=== PATIENT | female | born 1965 | race Caucasian/White ===

== ENCOUNTER 2019-12-06 09:15 | Inpatient (IN) | payer BC, OTHER ==
[2019-12-13] MEDS ORDERED: Celecoxib 200 MG Cap PO ONE (05:42)
[2019-12-13] MEDS ORDERED: Gabapentin 300 MG Cap PO ONE (05:42)
[2019-12-13] MEDS ORDERED: Acetaminophen 500 MG Tab PO ONE (05:42)
[2019-12-13] MEDS ORDERED: Scopolamine 1.5 MG Transdermal Patch TRDERM ONE (06:00)
[2019-12-13] MEDS ORDERED: Dextrose 5%-Lactated Ringers 1,000 ML IV SCH (06:30)
[2019-12-13] MEDS ORDERED: cefOXitin 2 GM Vial ONE (06:51)
[2019-12-13] MEDS ORDERED: Rocuronium 50 MG/5 ML Vial ONE (07:10)
[2019-12-13] MEDS ORDERED: fentaNYL 250 MCG/5 ML SDV ONE ×2 (07:10→07:36)
[2019-12-13] MEDS ORDERED: Dexamethasone 4 MG/ML SDV ONE (07:10)
[2019-12-13] MEDS ORDERED: Propofol 200 MG/20 ML SDV ONE (07:10)
[2019-12-13] MEDS ORDERED: Ondansetron 4 MG/2 ML SDV ONE (07:10)
[2019-12-13] MEDS ORDERED: Neostigmine Methylsulfate 1 MG/ML 5 ML Syringe ONE (07:10)
[2019-12-13] MEDS ORDERED: Succinylcholine 200 MG/10 ML MDV ONE (07:10)
[2019-12-13] MEDS ORDERED: Glycopyrrolate 0.2 MG/ML 5 ML MDV ONE (07:10)
[2019-12-13] MEDS ORDERED: Ketamine 50 MG in Sodium Chloride 0.9% 49.5 ML IV SCH (07:30)
[2019-12-13] MEDS ORDERED: cefOXitin 2 GM in Sodium Chloride 0.9% 50 ML IV ONE (07:30)
[2019-12-13] MEDS ORDERED: Magnesium Sulfate 3.8 GM in Sodium Chloride 0.9% 100 ML IV SCH (07:30)
[2019-12-13] MEDS ORDERED: Ketamine 500 MG/5 ML MDV IV SCH (07:30)
[2019-12-13] MEDS ORDERED: Ondansetron 4 MG/2 ML SDV IVPUSH ONE (09:16)
[2019-12-13] MEDS ORDERED: hydrOXYzine HCL 100 MG/2 ML SDV IM ONE (09:21)
[2019-12-13] MEDS ORDERED: Calcium Gluconate 10% 1 GM/10 ML SDV IVPUSH PRN (10:15)
[2019-12-13] MEDS ORDERED: Acetaminophen 500 MG Tab PO PRN (10:15)
[2019-12-13] MEDS ORDERED: diphenhydrAMINE 50 MG/ML SDV IVPUSH PRN (10:15)
[2019-12-13] MEDS ORDERED: Metoclopramide 10 MG/2 ML SDV IVPUSH PRN (10:15)
[2019-12-13] MEDS ORDERED: Acetaminophen 500 MG Tab PO SCH (10:15)
[2019-12-13] MEDS ORDERED: Labetalol 20 MG/4 ML Syringe IVPUSH PRN (10:15)
[2019-12-13] MEDS ORDERED: Ondansetron 4 MG/2 ML SDV IVPUSH PRN (10:15)
[2019-12-13] MEDS ORDERED: Cyclobenzaprine 10 MG Tab PO PRN (10:15)
[2019-12-13] MEDS ORDERED: hydrOXYzine HCL 100 MG/2 ML SDV IM PRN (10:15)
[2019-12-13] MEDS: oxyCODONE 5 MG Tab PO PRN ×2 (10:39→20:52)
[2019-12-13] MEDS: Dextrose 5%-Lactated Ringers 1,000 ML IV SCH ×2 (12:48→21:48)
[2019-12-13] MEDS: Gabapentin 250 MG/5 ML Solution ML 470 ML Bottle PO SCH ×2 (13:54→20:52)
[2019-12-13] MEDS: Acetaminophen 500 MG Tab PO SCH ×2 (13:55→22:22)
[2019-12-13] MEDS: cefOXitin 2 GM in Sodium Chloride 0.9% 50 ML IV SCH ×2 (13:55→20:46)
[2019-12-13] MEDS ORDERED: Pantoprazole 40 MG Vial IVPUSH SCH (14:00)
[2019-12-13] MEDS: Heparin Sodium 5,000 Units/ML Vial SUBCUT SCH (15:59)
[2019-12-13] MEDS ORDERED: MVI, Adult with Vitamin K 10 ML, Thiamine 200 MG, Chromium/Copper/Mang/Selen/Zn 1 ML in... IV SCH ×4 (16:00)
[2019-12-14] MEDS: cefOXitin 2 GM in Sodium Chloride 0.9% 50 ML IV SCH ×2 (01:07→07:44)
[2019-12-14] MEDS ORDERED: Iopamidol 612 MG/ML 50 ML SDV PO STA (03:16)
[2019-12-14] MEDS: Acetaminophen 500 MG Tab PO SCH ×3 (05:12→21:38)
[2019-12-14] MEDS: Heparin Sodium 5,000 Units/ML Vial SUBCUT SCH ×2 (05:13→16:34)
[2019-12-14] MEDS: Dextrose 5%-Lactated Ringers 1,000 ML IV SCH ×2 (05:16→10:04)
[2019-12-14] MEDS: SCOPOLAMINE PATCH CHECK TOP SCH (08:24)
[2019-12-14] MEDS: oxyCODONE 5 MG Tab PO PRN ×2 (09:05→21:40)
[2019-12-14] MEDS: Celecoxib 200 MG Cap PO SCH ×2 (09:08→21:38)
[2019-12-14] MEDS: Gabapentin 250 MG/5 ML Solution ML 470 ML Bottle PO SCH ×3 (09:09→21:36)
--- NOTE | 2019-12-14 10:10 | CR ---
[facility] HISTORY: Postbariatric surgery FINDINGS: Patient swallowed water-soluble contrast. Upright views of the abdomen show no evidence of extravasation or obstruction. There is some patchy density in the left lower lobe which may represent atelectasis or infiltrate IMPRESSION: Status post bariatric surgery No extravasation or obstruction seen Slight delay in transit likely represents postop ileus Patchy left lower lobe airspace disease may represent some atelectasis or infiltrate
[2019-12-14] MEDS ORDERED: MVI, Adult with Vitamin K 10 ML, Thiamine 200 MG, Chromium/Copper/Mang/Selen/Zn 1 ML in... IV SCH ×4 (16:00)
[2019-12-14] MEDS: Pantoprazole 40 MG Delayed-Release Granules 1 Packet PO SCH (16:37)
[2019-12-15] MEDS: Dextrose 5%-Lactated Ringers 1,000 ML IV SCH (02:24)
[2019-12-15] MEDS: oxyCODONE 5 MG Tab PO PRN ×2 (04:53→13:37)
[2019-12-15] MEDS: Heparin Sodium 5,000 Units/ML Vial SUBCUT SCH ×2 (04:54→15:55)
[2019-12-15] MEDS: Acetaminophen 500 MG Tab PO SCH (05:26)
[2019-12-15] MEDS ORDERED: Bacitracin Oint 28.35 GM Tube TOP PRN (07:34)
[2019-12-15] MEDS: Celecoxib 200 MG Cap PO SCH ×2 (08:07→20:29)
[2019-12-15] MEDS: Hyoscyamine 0.125 MG Tab.SL SL SCH ×4 (08:10→20:29)
[2019-12-15] MEDS: Gabapentin 250 MG/5 ML Solution ML 470 ML Bottle PO SCH ×3 (08:10→20:29)
[2019-12-15] MEDS: SCOPOLAMINE PATCH CHECK TOP SCH (08:11)
[2019-12-15] MEDS ORDERED: Silver Sulfadiazine 1% Crm 50 GM Tube TOP SCH (09:00)
[2019-12-15] MEDS ORDERED: Cyanocobalamin (Vitamin B12) 1,000 MCG/ML SDV IM ONE (09:00)
[2019-12-15] MEDS: Silver Sulfadiazine 1% Crm 50 GM Tube TOP SCH ×2 (10:35→20:29)
--- NOTE | 2019-12-15 11:17 | PN ---
DATE OF SERVICE: 12/15/2019 SUBJECTIVE: Diandra reports that when swallowing Tylenol, she got a couple of them stuck. She tried whole one first and that one got stuck. It felt like it caught in the throat, then mid chest and mid epigastric area. Then, earlier this morning, she tried breaking them half and that one also got stuck. At the time that happened, she also developed left shoulder pain and is reporting the shoulder pain on a pain scale of 1 to 10, 9/10. Her oral intake yesterday was 1170, output 1545. SETEBAN drain put out a light pink drainage of 145 mL. REVIEW OF SYSTEMS: Remainder of review of systems negative for any pertinent positives and negatives. OBJECTIVE: GENERAL: Diandra Garcia is a pleasant 54-year-old female. She is experiencing left shoulder pain when moving. No shortness of breath or associated signs or symptoms. VITAL SIGNS: TPR is 98.8, 86, 16, blood pressure 119/73. HEENT: Negative. NECK: Supple. HEART: Regular rate and rhythm. LUNGS: Clear. ABDOMEN: She does have tape adkins noted per nursing staff. Sutures intact. Incisions healing well. ESTEBAN drain intact as above. Abdominal binder has been on. EXTREMITIES: Without peripheral edema. ASSESSMENT: 1. Laparoscopic Fred-en-Y gastric bypass surgery. 2. Liver biopsy. 3. Repair of diaphragmatic hernia. 4. Excision of mediastinal lipoma. 5. Partial gastrectomy. POSTOPERATIVE DIAGNOSES: 1. Morbid obesity, hepatomegaly, diaphragmatic hernia, mediastinal lipoma, area of stomach avulsion after formation of pouch. 2. Date of surgery: 12/13/2019. Surgeon: Werner Williamson MD. PLAN: 1. Silvadene cream to tape adkins b.i.d. 2. Change Tylenol to chewable. 3. Blue ice chips/water. 4. Three med cups, record at bedside of the blue ice or water. 5. Levsin 0.125 mg scheduled every 4 hours. 6. Instructed the patient to sit up as straight as possible when taking medication, eating, or drinking. 7. May shower. 8. Good pulmonary toilet. 9. We will evaluate p.r.n. or in a.m. Norma Hoffman PA-C /[id number]
[2019-12-15] MEDS: Acetaminophen 160 MG Tab,Disintegrating PO SCH ×2 (13:32→22:27)
--- NOTE | 2019-12-15 14:39 | PN ---
DATE OF SERVICE: 12/14/2019 The patient has been afebrile with stable vital signs. No major problems were noted overnight. Oral intake was fair. Upper GI x-ray looks good. We will go up to step-2 diet and back down the IV rate. maximize activity and pulmonary toilet. Werner Williamson MD /[id number]
[2019-12-15] MEDS: Pantoprazole 40 MG Delayed-Release Granules 1 Packet PO SCH (15:55)
[2019-12-16] MEDS: Hyoscyamine 0.125 MG Tab.SL SL SCH ×3 (00:26→08:00)
[2019-12-16] MEDS: oxyCODONE 5 MG Tab PO PRN (00:28)
[2019-12-16] MEDS: Heparin Sodium 5,000 Units/ML Vial SUBCUT SCH (03:57)
[2019-12-16] MEDS: Acetaminophen 160 MG Tab,Disintegrating PO SCH (06:14)
[2019-12-16] MEDS: Celecoxib 200 MG Cap PO SCH (08:00)
[2019-12-16] MEDS: Silver Sulfadiazine 1% Crm 50 GM Tube TOP SCH (08:01)
[2019-12-16] MEDS: Gabapentin 250 MG/5 ML Solution ML 470 ML Bottle PO SCH (08:01)
--- NOTE | 2019-12-16 13:33 | DISCH ---
ADMISSION DIAGNOSES: 1. Morbid obesity. 2. BMI 45.5. 3. Irritable bowel syndrome. DISCHARGE DIAGNOSES: 1. Laparoscopic Fred-en-Y gastric bypass surgery, liver biopsy, repair of diaphragmatic hernia, excision of mediastinal lipoma, and partial gastrectomy for morbid obesity, hepatomegaly, diaphragmatic hernia, mediastinal lipoma, area of stomach avulsion after formation of pouch. Date of surgery: 12/13/2019. Surgeon: Werner Williamson MD. 2. Tape adkins from surgical tape. 3. Left shoulder pain secondary to laparoscopic surgery. HISTORY: Diandra Garcia is a 54-year-old female who has a history of morbid obesity and increasing comorbidities. After preoperative evaluation, discussion of possible risks and possible complications, she wished to proceed with surgical procedure. HOSPITAL COURSE: Diandra had her surgery on 12/13/2019. She had no operative complications. On postoperative day #1, she was started on step 2 gastric bypass diet with no cereal. Her activity was good. During the night, she got Tylenol that felt like it got stuck when she was swallowing and she had a little bit of difficulty swallowing. At the same time that happened, she developed left shoulder pain. She was started on Levsin and encouraged to do 3 med cups per hour and she continued to ambulate. She also was started on blue ice chips and water. Silvadene cream was prescribed for tape adkins. On postoperative day #2, there was improvement in swallowing. Her tape adkins were healing. She continued to be up and ambulating. Oral intake was 1700. Urine output was 1800. ESTEBAN drains were 190 and serosanguineous and she had 2 bowel movements. She received vitamin B12 1000 mcg IM injection before discharge. She received adequate dietary and activity instruction, ready to be discharged to home. PHYSICAL EXAMINATION: GENERAL: Diandra is a pleasant 54-year-old female. VITAL SIGNS: Height is 5 feet 6 inches, weight is 282 pounds, BMI is 45.5. TPR at 07:09 is 96.8, 93, 16, blood pressure 108/63. HEENT: Negative. NECK: Supple. HEART: Regular rate and rhythm. LUNGS: Clear. ABDOMEN: Incisions healing well. Sutures intact. 4 x 4 over ESTEBAN drain site. EXTREMITIES: Without peripheral edema. DISPOSITION: Discharged to home. CONDITION: Stable and improving. FOLLOWUP: Appointment with Norma Hoffman PA-C, at [facility] on 12/28/2019 at 10 a.m. HOME MEDICATIONS: 1. Celebrex 200 mg b.i.d. for 2 weeks. 2. Hyoscyamine 0.125 mg sublingual q.4 hours p.r.n. esophageal spasms. 3. Zofran ODT 4 mg q.6 hours p.r.n. nausea, vomiting. 4. Silvadene cream applied twice daily to tape adkins and sent home tube with the patient. 5. May continue taking Tums 1 tablet p.r.n. for heartburn. 6. Clindagel 1 applicator twice daily. 7. Colace 100 mg oral daily p.r.n. constipation and stop taking all vitamins and supplements until first postop appointment. DIET: Step 2 gastric bypass diet with no cereal for 2 weeks until 12/28/2019. ACTIVITIES: No lifting over 10 pounds for 2 weeks. OTHER ACTIVITY: Walk 6 times daily inside your home. Driving: Do not drive for 1 week. Shower/bathing: May shower. DISCHARGE INSTRUCTIONS: Notify provider if any fever, increased pain, nausea, vomiting. Wound incision care; keep site clean and dry. Wear abdominal binder for 2 weeks and then as tolerated. SPECIAL INSTRUCTIONS: Use incentive spirometer 10 times every hour while awake for 1 week.
--- NOTE | 2019-12-20 09:02 | OR ---
DATE OF PROCEDURE: 12/13/2019 SURGEON: Werner Williamson MD PREOPERATIVE DIAGNOSIS: Morbid obesity. POSTOPERATIVE DIAGNOSES: 1. Morbid obesity. 2. Marked hepatomegaly. 3. Paraesophageal diaphragmatic hernia. 4. Mediastinal lipoma. 5. Area of stomach rendered ischemic following formation of gastric pouch. PROCEDURE PERFORMED: 1. Laparoscopic Fred-en-Y gastric bypass with long limb gastroenterostomy(85531). 2. Venkatesh-Cut needle liver biopsy (72579). 3. Repair of paraesophageal diaphragmatic hernia (95261). 4. Excision of mediastinal lipoma (25465). 5. Partial gastrectomy (51590). ANESTHESIA: General. MOLDING ASSOCIATE: Norma Hoffman PA-C. INDICATIONS FOR PROCEDURE: This is a 54-year-old presenting with longstanding morbid obesity and increasingly significant comorbidities. After preoperative evaluation and discussion, she wished to proceed with a gastric bypass procedure. Potential risks including bleeding, infection, injury to underlying viscera, problems with bowel obstruction over time, leaks from the GI tract anastomoses, as well as possibility of cardiopulmonary, septic, or hemorrhagic complications leading to were discussed, and the patient wishes to proceed. DETAILS OF PROCEDURE: The patient was taken to the operating room and after general endotracheal anesthesia was induced, she was placed in a lithotomy position and the abdomen prepped and draped. At 15 cm inferior and 5 cm left of the xiphoid process, a transverse incision was made and the peritoneal cavity entered under direct vision with an Optiview trocar, inflated to 15 mmHg pressure with CO2. Laparoscope was re-inserted. No underlying trocar insertion site injuries were seen. Bilateral transversus abdominis plane blocks were then placed, and 5 additional trocars were placed across the upper and mid abdomen. The liver was markedly enlarged and fatty infiltrated. Venkatesh-Cut needle biopsy was obtained from the left lobe of the liver. Minimal bleeding from the biopsy sites was controlled with electrocautery. At this point, the omentum was divided in the midline up to the level of the transverse colon. This allowed identification of the small bowel to the ligament of Treitz. Small bowel was then traced out 150 cm distal to that point, where it was divided transversely with ROBERTA stapler. Small bowel was then traced out additional 150 cm, where the [id number] enteroenterostomy was accomplished with internal firing of the Endo-ROBERTA 60 mm stapler. Common opening was then closed transversely with the same stapler, and angles of anastomosis and mesenteric defect were approximated with some 0 Ethibond stitch, along with fibrin sealant. The divided end of the Fred limb was then from the mesentery for a few centimeters, which allowed an antecolic position of the Fred limb up above the gastroesophageal junction without tension. The liver was then retracted anteriorly. The patient was noted to have significant paraesophageal diaphragmatic hernia with prolapse of a portion of the perigastric fat and gastric fundus in a plane anterior to the course of the esophagus. This was reduced, and the peritoneum overlying this was incised and reflected downward. During the course of the dissection, a mediastinal lipoma was encountered, and this was excised as well, to facilitate adequate repair of the crura. Crural repair was then accomplished with 0 Ethibond sutures reinforced with PTFE pledgets. The gastrointestinal balloon catheter was then inflated to 15 mL and pulled up snugly against the EG junction. Gastric wall over the apex balloon was then marked with electrocautery, and balloon catheter deflated and removed. The lesser omental tissue adjacent to the gastric cardia was then incised, allowing dissection of the area behind the stomach. Pouch formation was initiated with transverse firing of the ROBERTA stapler at the level of the cauterized dorothea in the gastric cardia. Pouch was then completed with additional firings of the ROBERTA stapler up to and through the angle of His. Upon completion of the pouch, both staple lines were noted to be intact. The distal end of the pouch at this point was noted to be quite ischemic in appearance, and this portion of the stomach was then excised. This resulted in somewhat smaller pouch, but still adequate anatomy was remaining. The anvil of a 25 mm EEA stapler was attached to the Eddy sump type tube. The latter was brought down through the mouth and taken out through a small opening in the gastric pouch, allowing the anvil likewise to be pulled down to the gastric pouch. The divided end of the Fred limb was then opened and the main body of the EEA stapler was brought up to the anvil and united with it, thus creating the gastrojejunostomy. Upon removal of the stapler, double donuts of mucosa were noted within it. The small bowel was closed off with a vascular staple line. Gastrojejunostomy was reinforced with some 3-0 Vicryl seromuscular stitch and fibrin sealant. A leak test was accomplished with injection of 120 mL of air in the gastric pouch while it was submerged with cefoxitin-containing saline solution. A single Mikel-Andujar drain was taken out through the left lateral trocar site and positioned adjacent to the gastric pouch and from there up into the splenic fossa. The trocars were removed and the peritoneal cavity deflated. The incisions were closed with some 4-0 Vicryl skin stitch, which was also used to affix the drain. The patient was taken to the recovery room in satisfactory condition. Physician travel assistant, Norma Hoffman, played an essential role in assisting in this case, helping to position the patient, retract structures as needed, as well as suturing and cutting sutures when indicated. Her presence improved the patient's safety and decreased the operative time. Werner Williamson MD /[id number]
== END 2019-12-16 09:45 | disposition home or self-care (01) | DRG 403 ==
LOC: JP.SDSSCHI 12-13 05:30 → JP.ICU 12-13 05:30 → UNDOADMIN 12-13 05:30 → JP.SDS 12-13 05:30 → EDSTATUS 12-13 07:15 → JP.ICU 12-13 08:50 → JP.MS 12-13 16:50
PROVIDERS: ADMIT Surgery; ATTEND Surgery
PROC: 0D164ZA Bypass Stomach to Jejunum, Percutaneous Endoscopic Approach (ICD-10-PCS; principal; 2019-12-13)
PROC: 0FB24ZX Excision of Left Lobe Liver, Percutaneous Endoscopic Approach, Diagnostic (ICD-10-PCS; 2019-12-13)
PROC: 0DB64ZZ Excision of Stomach, Percutaneous Endoscopic Approach (ICD-10-PCS; 2019-12-13)
PROC: 0JB63ZZ Excision of Chest Subcutaneous Tissue and Fascia, Percutaneous Approach (ICD-10-PCS; 2019-12-13)
PROC: 0BQT4ZZ Repair Diaphragm, Percutaneous Endoscopic Approach (ICD-10-PCS; 2019-12-13)
DX: E66.01 Morbid (severe) obesity due to excess calories (principal); Z68.42 Body mass index [BMI] 45.0-49.9, adult; K58.9 Irritable bowel syndrome, unspecified; K44.9 Diaphragmatic hernia without obstruction or gangrene; D17.4 Benign lipomatous neoplasm of intrathoracic organs; R16.0 Hepatomegaly, not elsewhere classified; M25.512 Pain in left shoulder
CPT/HCPCS: 36415; 74240; 74240-26; 81025; 82962; 86850; 86900; 86901; 88304; 88305; 88307; 88313; A9270-GY; C9113; J0171; J0330; J0694; J1100; J1644; J2405; J2704; J2710; J2765; J2795; J3010; J3410; J3411; J3420; J3475; J3490; J7050; J7121; Q9967

== ENCOUNTER 2020-02-04 09:42 | Day surgery (SDC) | payer BC, OTHER ==
[~2020-02-04 09:42] MED LIST: Midazolam 1 MG/ML 2 ML SDV ONE; Propofol 200 MG/20 ML SDV ONE; fentaNYL 100 MCG/2 ML SDV ONE
[2020-02-04] MEDS ORDERED: Cyanocobalamin (Vitamin B12) 1,000 MCG/ML SDV IM ONE (10:30)
[2020-02-04] MEDS ORDERED: Lactated Ringers 1,000 ML IV ONE (10:30)
[2020-02-04] MEDS ORDERED: Glycopyrrolate 0.2 MG/ML 2 ML SDV IVPUSH ONE (10:30)
[2020-02-04] MEDS ORDERED: Pantoprazole 40 MG Vial IVPUSH ONE (11:27)
[2020-02-04] MEDS ORDERED: MVI, Adult with Vitamin K 10 ML, Thiamine 200 MG, Chromium/Copper/Mang/Selen/Zn 1 ML in... IV ONE ×4 (11:30)
[2020-02-04] MEDS ORDERED: methylPREDNISolone Sodium Succinate 125 MG/2 ML SDV IVPUSH ONE (11:38)
--- NOTE | 2020-02-06 11:34 | OR ---
DATE OF PROCEDURE: 02/04/2020 SURGEON: Werner Williamson MD PREOPERATIVE DIAGNOSIS: Dysphagia, status post Fred-en-Y gastric bypass. POSTOPERATIVE DIAGNOSIS: Edema and friability at gastrojejunostomy without significant stricturing. OPERATIVE PROCEDURE: Upper GI endoscopy with biopsies of gastric pouch for CLOtest. ANESTHESIA: IV sedation. INDICATIONS FOR PROCEDURE: This is a 54-year-old female, presenting with symptoms of dysphagia referable to the area of the gastrojejunostomy of the Fred-en-Y gastric bypass in November of this year. Plan is to proceed with upper GI endoscopy with biopsies and/or dilation as indicated. Potential risks including bleeding and perforation were discussed, and the patient wishes to proceed. DETAILS OF PROCEDURE: The patient was taken to the operating room and placed in a left lateral decubitus position. IV sedation was administered, after which the upper GI endoscope was passed orally through the length of the esophagus into the gastric pouch through the gastrojejunostomy roughly 20 cm into the Fred limb. Findings included normal hypopharynx, larynx, upper esophageal sphincter, esophageal body, and esophagogastric junction. The gastric pouch was unremarkable. At the gastrojejunostomy, there was some reddening and edema. Little bit of blood was present after passage of the scope through that area. There was, however, no stricture present with this area being widely opened. The remainder of the portions of the Fred limb visualized were unremarkable. At this point, biopsies were obtained from the gastric pouch, sent for CLOtest for H pylori. Minimal bleeding from the biopsy site was seen and the procedure was then concluded. At this point, the patient will be given Protonix 40 IV push in the recovery room and a month's course of Protonix 40 mg daily. One additional aspect in this patient's care is onset of gout in her right foot. She was given a prescription yesterday for course of oral prednisone, which is not yet filled. Given this, we gave the patient 125 mg of Solu-Medrol IV in the recovery room to initiate treatment of this and she was instructed then to start that course of oral steroids tomorrow. We will also start the patient on allopurinol 300 mg a day for the next 3 months. At that point, the patient will likely be beyond the point where she is having troubles with hydration, and we would have her go off the allopurinol at that time. I suspect that in a month from now, the patient should also be able to go off the Protonix, so only 30-day supply was prescribed. The patient is scheduled for followup with Norma Hoffman at [facility] in February. Werner Williamson MD /[id number]
== END 2020-02-04 14:00 | disposition home or self-care (01) ==
LOC: JP.SDS 09:42
PROVIDERS: ATTEND Surgery
DX: K91.89 Other postprocedural complications and disorders of digestive system (principal); R60.9 Edema, unspecified; M10.9 Gout, unspecified; E66.9 Obesity, unspecified; Y83.8 Other surgical procedures as the cause of abnormal reaction of the patient, or of later complication, without mention of misadventure at the time of the procedure; Z98.84 Bariatric surgery status; Z68.41 Body mass index [BMI] 40.0-44.9, adult
CPT/HCPCS: 43239; 87081; C9113; J2250; J2704; J2930; J3010; J3411; J3420; J3490; J7120